=== PATIENT | female | born 2000 | race Caucasian/White ===

== ENCOUNTER 2022-10-07 11:51 | Emergency (ER) | payer OTHER, SELFPAY ==
[2022-10-07 13:07] LABS: Mean Corpuscular HGB CONC 33.8 g/dL (32.0-36.0); Mean Corpuscular Hemoglobin 28.9 pg (27.0-33.0); Mean Corpuscular Volume 85.5 fl (81.6-98.3); Mean Platelet Volume 9.7 fl (7.4-10.4); Platelet Count 214 10x3/uL (150-450); RBC Distribution Width 13.5 % (11.5-14.5); Red Blood Cell (RBC) Count 4.15 10x6/uL (3.90-5.03)
[2022-10-07 13:08] LABS: MDiff Complete? YES
[2022-10-07 13:20] LABS: BHCG - Serum POSITIVE (NEGATIVE); Pregs Control Background? CLEAR/WHITE (CLR/WHITE); Pregs Control Bar Appear? YES (CONTROL BAR)
[2022-10-07] MEDS ORDERED: Ketorolac Tromethamine 30 MG/ML VIAL ONE (13:22)
[2022-10-07] MEDS ORDERED: Ondansetron PF 4 MG/2 ML Vial ONE (13:22)
[2022-10-07 13:27] LABS: ALT (SGPT) 374 U/L (8-55); AST (SGOT) 349 U/L (5-34); Albumin 3.8 g/dL (3.5-5.0); Alkaline Phosphatase 63 U/L (40-110); Anion Gap 15 mmol/L (10-20); BUN (Urea Nitrogen) 8 mg/dL (7.0-18.7); Bilirubin, Total 0.3 mg/dL (0.2-1.2); Calc. Creatinine Clearance 0 mL/min (70-130); Calcium 9.2 mg/dL (7.8-10.44); Carbon Dioxide 19 mmol/L (22-29); Chloride 105 mmol/L (98-107); Estimated GFR 110; Globulin 3.7 g/dL (2.4-3.5); Glucose 84 mg/dL (70-105); Lipase 35 U/L (8-78); Potassium 3.2 mmol/L (3.5-5.1); Protein, Total 7.5 g/dL (6.0-8.3); Sodium 136 mmol/L (136-145)
[2022-10-07 13:59] LABS: Eosinophils 1 % (0-10); Lymphocytes 39 % (21-51); Monocytes 11 % (0-10); Neutrophil 46 % (42-75); Reactive Lymphocytes 3 % (0-10)
[2022-10-07 14:00] LABS: Platelet Adequacy Comment Appears Adequate; RBC Morph Comment Within Normal Limits
[2022-10-07 14:03] LABS: Bilirubin Neg (Negative); Blood, Urine 250 (Negative); Clarity Slightly Cloudy (Clear); Glucose, Urine (Dipstick) Normal (Negative); Ketone, Urine 150 mg/dL (Negative); Leukocyte 25 (Negative); Nitrite Negative (Negative); Protein, Urine (Dipstick) 30 mg/dl (Neg-Trace); Specific Gravity, Urine 1.025 (1.005-1.030); Urobilinogen Normal mg/dL (Less than 2)
[2022-10-07 14:36] LABS: Bacteria/HPF 2+ HPF (None Seen); CAUTI Indications for Culture Pregnancy; RBC/HPF 21-50 HPF (0-3)
[2022-10-07 14:38] LABS: Urine Culture Reflex Yes Yes
== END 2022-10-07 15:05 | disposition home or self-care (01) ==
LOC: CSHERS 11:51
DX: O20.0 Threatened abortion (principal); Z3A.01 Less than 8 weeks gestation of pregnancy
CPT/HCPCS: 36415; 76856; 80053; 81001; 83605; 83690; 84702; 84703; 85025; 86900; 86901; 87086; 96374; 96375; J1885; J2405

== ENCOUNTER 2023-05-30 14:29 | Emergency (ER) | payer OTHER ==
[2023-05-30] MEDS ORDERED: predniSONE 20 MG TAB ONE (16:30)
== END 2023-05-30 17:44 | disposition home or self-care (01) ==
LOC: CSHERS 14:29
DX: T78.40XA Allergy, unspecified, initial encounter (principal); J01.90 Acute sinusitis, unspecified
CPT/HCPCS: 99282; J7512